=== PATIENT | female | born 1955 | race Caucasian/White ===

== ENCOUNTER 2024-04-04 10:36 | Emergency (ER) | payer MEDICARE ==
[~2024-04-04] VITALS: Ht 162.6 cm; Wt 81.6 kg
[2024-04-04 11:07] LABS: SARS-CoV-2, RNA, NAAT NEGATIVE SARS CoV-2 (NEGATIVE)
[2024-04-04 11:11] LABS: INFLUENZA TYPE A Negative For Type A (NEGATIVE); INFLUENZA TYPE B Negative For Type B (NEGATIVE)
[2024-04-04] MEDS: Solu-medROL 125MG VIAL IVP ONE (11:19)
[2024-04-04] MEDS: MAGNESIUM 2GM PREMIX 50ML 50 ML IV ONE (11:21)
[2024-04-04] MEDS: IpraTROPium/alBUTERol SULFATE 3 ML SOLUTION IH ONE (11:28)
[2024-04-04 11:30] VITALS: PULSE 83; RESP 18
[2024-04-04] MEDS ORDERED: METH4TAB3 PO (12:28)
[2024-04-04] MEDS ORDERED: AZIT250T9 PO (12:28)
[2024-04-04] MEDS ORDERED: BENZ-39 PO (12:28)
[2024-04-04 12:31] VITALS: BP 105/66; PULSE 78; RESP 18; TEMP 98.8; O2SAT 96
== END 2024-04-04 12:45 | disposition home or self-care (01) ==
LOC: EDH 10:36
DX: J45.901 Unspecified asthma with (acute) exacerbation (principal); Z90.49 Acquired absence of other specified parts of digestive tract; Z79.899 Other long term (current) drug therapy; Z20.822 Contact with and (suspected) exposure to COVID-19
CPT/HCPCS: 99284; 96374; 71045; 87635; 96375; 87804 ×2; 94640; J3475; J2919